=== PATIENT | male | born 1970 ===

== ENCOUNTER 2025-01-04 05:15 | Day surgery (SDC) | payer OTHER ==
[~2025-01-04 05:15] MED LIST: AVALIDE 300-121 EACH
[2025-01-04] MEDS ORDERED: CEFAZOLIN SODIUM 1,000 MG VIAL ONE (12:57)
[2025-01-04] MEDS ORDERED: SUGAMMADEX SODIUM 200 MG/2 ML VIAL IV ONE (14:21)
[2025-01-04] MEDS ORDERED: MORPHINE SULFATE 4 MG/ML VIAL IV ONE ×2 (15:25→15:55)
== END 2025-01-04 17:15 | disposition home or self-care (01) ==
LOC: CIR.AMB 05:15
PROVIDERS: ATTEND Surgery
DX: K42.9 Umbilical hernia without obstruction or gangrene (principal); D21.6 Benign neoplasm of connective and other soft tissue of trunk, unspecified; I10 Essential (primary) hypertension
CPT/HCPCS: 49593; 21933; C1781